=== PATIENT | male | born 1985 | race African-American/Black ===

== ENCOUNTER 2017-01-06 04:10 | Inpatient (IN) | payer OTHER ==
--- NOTE | ~2017-01-06 | HP ---
Unit #: [id number] #: [id number] Patient: JESSICA ROBIN [id number] [address] [place], [place] [address] [id number] MR#: [id number] NAME: JESSICA ROBIN ROOM: 560 Age: 31 Sex: M Admission Date: 01/06/2017 : 1985 Attending Physician: Suyapa Hu M.D. Primary Care Physician: No Primary Care Physician HISTORY AND PHYSICAL CHIEF COMPLAINT Alcohol abuse with withdrawal. HISTORY This pleasant 31-year-old male with traumatic brain injury, GERD, alcohol abuse, was transferred from the [facility] emergency department for alcohol withdrawal. The patient had been clean and sober for nine months until two weeks ago. Over the past two weeks has been binge drinking alcohol. His girlfriend states he drinks at least 1.75 L on a daily basis, last drink was last evening. Last evening he went the [facility] as he wanted to stop drinking, had multiple episodes of nausea and vomiting. He was tachycardic and tremulous. He ultimately was treated with a liter of saline, given Zofran, and 2 mg of Ativan. Currently is feeling improved. His alcohol level at the time of presentation was 478. He has been seen at the [facility] many times and has undergone rehab at their facility as well. Apparently the [facility] ER does not hold patient's, and there were no available rooms at the hospital. Therefore, he was transferred to this facility for his alcohol withdrawal. Again the patient does have a history of alcohol abuse, and states that in the past he did have alcohol withdrawal seizures along wit delirium tremens. PAST MEDICAL HISTORY 1. Chronic back pain. 2. Alcohol abuse with DTs and withdrawal seizures in the past. 3. GERD. 4. Traumatic brain injury and PTSD. 5. Reconstructive facial surgery. ALLERGIES None. HOME MEDICATIONS Claritin 10 mg daily; Flonase nasal spray; multivitamin daily; omeprazole. FAMILY HISTORY Questionable for alcohol. SOCIAL HISTORY The patient is living with his girlfriend. He is a lifelong nonsmoker and does not use drugs. Does have a history of alcohol binge drinking. Unit #: [id number] #: [id number] Patient: ROBIN,JESSICA REVIEW OF SYSTEMS Notable for shakiness, nausea, vomiting, headache currently, back pain, alcohol abuse, GERD, TBI, PTSD, facial reconstructive surgery. All other systems were reviewed and are negative. PHYSICAL EXAMINATION GENERAL: Very pleasant, 31-year-old, somewhat tremulous male currently in no acute distress otherwise. VITAL SIGNS: Prior to transfer, blood pressure 124/52, O2 saturation was 94 to 95% on room air. Patient was afebrile. Heart rate 105 to 115. HEENT: Eyes - PERRLA, extraocular muscles are intact. Some horizontal nystagmus noted. Pharynx is benign. NECK: Supple without adenopathy or thyromegaly. CHEST: Clear. CARDIAC: Slightly tachy S1 and S2 without murmur. ABDOMEN: Bowel sounds are present. Mild hepatomegaly, nontender, no masses. EXTREMITIES: Without clubbing, cyanosis or edema. Pedal pulses are present. NEUROLOGIC: Patient is awake, alert, and oriented. His cranial nerves revealed some horizontal nystagmus. He is mildly tremulous. He has equal strength throughout. DIAGNOSTIC STUDIES LABS PRIOR TO TRANSFER: Hematocrit 41, normal white count and MCV, platelet count 106. SMA 12 - glucose 111, chloride 88, calcium 7.9 with a normal albumin. ALT is 75, AST 99, bilirubin 1.7, alcohol level 478. ASSESSMENT 1. Alcohol binge with alcohol withdrawal. 2. Alcohol induced transaminitis and a history of hepatic steatosis per old records. 3. Thrombocytopenia secondary to alcohol abuse. 4. Traumatic brain injury following head injury and history of PTSD. 5. Environmental allergies. 6. GERD. 7. Chronic low back pain. PLANS 1. IV fluids and supportive treatment. 2. Given that patient concerns large amounts of vodka, will place on Librium routinely along with p.r.n. Ativan and give vitamins. 3. Patient is interested in rehab at the [facility] at the time of discharge, where he has been seen before. Dictated by Suyapa Hu M.D. JASON/ts TD: 01/06/2017 05:42 JOB #: [id number] Unit #: [id number] #: [id number] Patient: JESSICA ROBIN HISTORY AND PHYSICAL X Suyapa Hu MD HISTORY AND PHYSICAL
[2017-01-06 07:41] LABS: HEMATOCRIT 41.2 % (38.0-50.0); HEMOGLOBIN 13.6 gm/dL (13.0-16.0); MEAN CELL VOLUME 86.7 FL (83-96); MEAN CORPUSCULAR HEMOGLOBIN 28.7 PG (28-34); MEAN CORPUSCULAR HGB CONC 33.2 g/dL (30-36); MEAN PLATELET VOLUME 9.2 FL (6.5-11.5); RED BLOOD COUNT 4.75 X10e (3.90-5.60); RED CELL DISTRIBUTION WIDTH 14.1 % (11.0-15.5)
[2017-01-06 07:50] LABS: PARTIAL THROMBOPLASTIN TIME 23.6 SECONDS (23.5-31.3); PROTHROMBIN TIME (PATIENT) 10.3 SECONDS (9.6-11.5)
[2017-01-06 08:22] LABS: ALKALINE PHOSPHATASE 42 U/L (32-92); ALT (SGPT) 54 U/L (10-40); AST (SGOT) 77 U/L (10-42); BILIRUBIN,TOTAL 1.3 mg/dL (0.2-2.0); BLOOD UREA NITROGEN 14 mg/dL (9-23); BUN/CREATININE RATIO 23.33; CALCIUM SERUM 7.8 mg/dL (8.4-10.2); CARBON DIOXIDE 25 mmol/L (22-31); CHLORIDE 91 mmol/L (100-111); CREATININE SERUM 0.6 mg/dL (0.6-1.4); GLOM FILT RATE Estimated ABOVE60 mL/min (>60); GLUCOSE FASTING 105 mg/dL (70-110); POTASSIUM 3.8 mmol/L (3.5-5.1); PROTEIN TOTAL SERUM 7.3 g/dL (6.0-8.3); SODIUM 133 mmol/L (135-145)
== END 2017-01-07 11:36 | disposition home or self-care (01) | DRG 897 ==
LOC: C5B 04:10
PROVIDERS: Internal Medicine
DX: F10.239 Alcohol dependence with withdrawal, unspecified (principal); D69.59 Other secondary thrombocytopenia; Z87.820 Personal history of traumatic brain injury; K21.9 Gastro-esophageal reflux disease without esophagitis; K44.9 Diaphragmatic hernia without obstruction or gangrene; M54.9 Dorsalgia, unspecified
CPT/HCPCS: 80053; 85027; 85610; 85730; J2405; J3411

== ENCOUNTER 2017-04-18 18:56 | Inpatient (IN) | payer OTHER ==
--- NOTE | ~2017-04-18 | DS ---
Unit #: [id number] #: [id number] Patient: JESSICA ROBIN [id number] [facility]. [place], [place] [address] [id number] I MR#: [id number] NAME: JESSICA ROBIN ROOM: 310 Age: 32 Sex: M Admission Date: 04/19/2017 : 1985 Discharge Date: 04/19/2017 Attending Physician: Kay Brenner M.D. Primary Care Physician: No Primary Care Physician DISCHARGE SUMMARY Please note - patient left against medical advice. Please see H and P for complete details. After I saw and evaluated patient in the emergency room, he was subsequently transferred to telemetry floor. Upon reaching the telemetry floor, he refused all laboratory studies. He refused vital signs. He became very belligerent. He stated that he needed Ativan 4-6 mg IV q. hour. If we were unable to provide his Ativan at that dosage, he requested an Ativan drip. He did not qualify for either. His CIWA score was 3, only based on elevated blood pressure and mildly elevated heart rate. He exhibited no withdrawal signs or symptoms here. There was a question if he had any seizure-like activity. However, he stated that he was having active seizures but he was having a full conversation with me at the same time. When I left the room and came back at a later point in time, the patient stopped moving. However, when I began talking to him once again, he began shaking and stating that he was having seizures. While he was evaluated on the telemetry floor and after not being able to receive his Ativan drip and/or IV, subsequently, he stated that he wanted to leave. It should be noted that he did, from the ER moving to telemetry floor, decide to walk out and walk down and outside the hospital with several friends with his IV in place. Upon returning to the floor, we requested a urine tox screen to which he refused. At that point in time, and because he was becoming belligerent, we had security involved. His IV was removed and the patient walked out against medical advice. He was alert and oriented x3 at time of discharge. His discharge medications are unknown as he did leave against medical advice. FINAL DISCHARGE DIAGNOSES 1. Alcohol abuse. 2. Likely polysubstance abuse. 3. Questionable history of withdrawal seizures in the past. DISCHARGE MEDICATIONS Unknown. DISCHARGE DISPOSITION Unknown. Patient left AMA. Unit #: [id number] #: [id number] Patient: JESSICA ROBIN Dictated by... Kian Hoover/cholo TD: 04/20/2017 11:18 JOB #: [id number] DISCHARGE SUMMARY Page 1 of 1 X Kay Brenner MD X DISCHARGE SUMMARY
--- NOTE | ~2017-04-18 | HP ---
Unit #: [id number] #: [id number] Patient: JESSICA ROBIN [id number] [address] [place], [place] [address] [id number] I MR#: [id number] NAME: JESSICA ROBIN ROOM: 15745 Age: 32 Sex: M Admission Date: 04/19/2017 : 1985 Attending Physician: Suyapa Hu M.D. Primary Care Physician: No Primary Care Physician HISTORY AND PHYSICAL CHIEF COMPLAINT Alcohol withdrawal seizure, and early alcohol withdrawal despite alcohol intoxication. HISTORY This 32-year-old male with traumatic brain injury, GERD, ETOH abuse, is admitted for alcohol withdrawal and alcohol withdrawal seizure. The patient binge drinks, has been on a binge for the past week drinking one half gallon of vodka daily. Last drink was yesterday afternoon. However, yesterday morning he awoke with a seizure. Last evening he became tremulous and presented to this emergency department where he was tachycardic and hypertensive. He was given Librium, IV fluids, rally pack, Ativan and Protonix. He still feels somewhat tremulous with tachycardia. He is in therapy as an outpatient for his alcohol abuse. Alcohol level upon presentation to the ER was 393. PAST MEDICAL HISTORY 1. Chronic back pain. 2. Alcohol abuse with alcohol withdrawal seizures in the past and DTs. 3. GERD. 4. Traumatic brain injury and PTSD. 5. Reconstructive facial surgery. ALLERGIES None. HOME MEDICATIONS 1. Omeprazole 20 mg daily. 2. Multivitamin. 3. Flonase nasal spray. 4. Claritin 10 mg daily. FAMILY HISTORY Alcohol abuse. SOCIAL HISTORY The patient lives in an apartment and his girlfriend lives in the same apartment building. He is a lifelong nonsmoker, does not use illicit drugs. Binge drinks alcohol, has been drinking a half gallon of vodka on a daily basis over the past week. REVIEW OF SYSTEMS Notable for palpitations, shakiness, seizure yesterday morning, chronic Unit #: [id number] #: [id number] Patient: JESSICA ROBIN back pain, alcohol abuse with seizures and DTs related to such, GERD, traumatic brain injury, PTSD, above mentioned surgeries. All other systems were reviewed and are otherwise negative. PHYSICAL EXAMINATION GENERAL APPEARANCE: Pleasant, mildly tremulous 32-year-old male who otherwise is in no acute distress. VITAL SIGNS: Temperature has not yet been obtained. Pulse was 115, now is 145. Respirations 19, blood pressure 148/94. O2 saturation is 96% on 2 L of oxygen. HEENT: Eyes PERRLA. Extraocular muscles are intact. Pharynx is benign. NECK: Supple without adenopathy or thyromegaly. CHEST: Clear. CARDIAC: Tachy S1 and S2 without murmur. ABDOMEN: Bowel sounds are present. No hepatosplenomegaly, tenderness or masses. EXTREMITIES: Without clubbing, cyanosis or edema. Pedal pulses are present. NEUROLOGIC: The patient is awake, alert, oriented. His cranial nerves are intact except for mildly stuttered speech. He is mildly tremulous on exam. He has equal strength throughout. DIAGNOSTIC STUDIES LABORATORY: Admission labs - hematocrit is 46.1. Normal white count and platelet count. SMA-12 - chloride is 97, protein 8.7, AST 75, ALT 55, normal lipase. CPK is 1600. Alcohol level is 393. Cardiac markers negative. ASSESSMENT 1. Alcohol withdrawal seizure yesterday morning. Patient now presents with early alcohol withdrawal despite being somewhat intoxicated. 2. Sinus tachycardia related to above. 3. Binge drinking, patient drinks one half gallon of vodka on a daily basis. 4. Gastroesophageal reflux disease. 5. Traumatic brain injury and post traumatic stress disorder. PLANS 1. IV fluids. 2. Benzos and vitamins. 3. Low dose Lopressor, check EKG, TSH, magnesium. 4. Check urine tox screen. 5. The patient plans to follow up with therapist as an outpatient. 6. Will check temperature. Dictated by Kian Bryant/cholo TD: 04/19/2017 05:01 JOB #: [id number] Unit #: [id number] #: [id number] Patient: JESSICA ROBIN HISTORY AND PHYSICAL Page 1 of 1 X Suyapa Hu MD HISTORY AND PHYSICAL
--- NOTE | ~2017-04-18 | EKG ---
PATIENT: JESSICA ROBIN UNIT #: [id number] Ventricular Rate: 103 BPM Atrial Rate: 312 BPM QRS Duration: 90 ms Q-T Interval: 276 ms QTC Calculation(Bezet): 361 ms P [place]: 42 degrees Calculated R [place]: 44 degrees Calculated T [place]: 10 degrees Diagnosis Line: Sinus tachycardia Diagnosis Line: Nonspecific T wave abnormality Diagnosis Line: Abnormal ECG Diagnosis Line: When compared with ECG of 19-APR-2017 02:34, Diagnosis Line: (unconfirmed) Diagnosis Line: Vent. rate has increased BY 53 BPM Diagnosis Line: Nonspecific T wave abnormality now evident in Diagnosis Line: Inferior leads Diagnosis Line: Nonspecific T wave abnormality, worse in Lateral Diagnosis Line: leads Diagnosis Line: Confirmed by TERE CARRILLO MD ([id number]) on Diagnosis Line: 04/19/2017 10:38:12 PM INTERPRETING MD: SASCHA
[2017-04-18 20:56] LABS: BASOPHIL% 0.5 % (0-2.5); EOSINOPHIL% 0.3 % (0.0-7.0); HEMATOCRIT 46.5 % (38.0-50.0); HEMOGLOBIN 15.3 gm/dL (13.0-16.0); LYMPHOCYTE# 3.5 X10e3 (1.0-3.5); LYMPHOCYTE% 49.4 % (17.0-45.0); MEAN CELL VOLUME 87.3 FL (83-96); MEAN CORPUSCULAR HEMOGLOBIN 28.8 PG (28-34); MEAN PLATELET VOLUME 8.7 FL (6.5-11.5); MONOCYTE# 0.3 X10e3 (0-1.0); MONOCYTE% 4.9 % (3.0-12.0); NEUTROPHIL# 3.2 X10e3 (1.5-7.1); NEUTROPHIL% 44.9 % (40-75); PLATELET COUNT 230 X10e3 (140-420); RED BLOOD COUNT 5.32 X10e (3.90-5.60); RED CELL DISTRIBUTION WIDTH 14.2 % (11.0-15.5); WHITE BLOOD COUNT 7.1 X10e3 (4.0-10.5)
[2017-04-18 20:58] LABS: DIFF IND NO
[2017-04-18 21:04] LABS: POC - CKMB 10.4 ng/mL (0.0-7.9); POC - TROPONIN <0.05 ng/mL (<=0.05)
[2017-04-18 21:23] LABS: ALBUMIN SERUM 4.6 g/dL (3.5-5.0); BILIRUBIN, DIRECT 0.2 mg/dL (0.0-0.2); BILIRUBIN,TOTAL 1.2 mg/dL (0.2-2.0); BUN/CREATININE RATIO 18.57; CALCIUM SERUM 8.4 mg/dL (8.4-10.2); CREATININE SERUM 0.7 mg/dL (0.6-1.4); GLOM FILT RATE Estimated 144.8 mL/min (>60); POTASSIUM 3.8 mmol/L (3.5-5.1); PROTEIN TOTAL SERUM 8.7 g/dL (6.0-8.3)
[2017-04-19 11:46] LABS: THYROID STIMULATING HORMONE 1.86 uIU/ml (0.34-5.60)
[2017-04-19 11:53] LABS: FREE THYROXIN (T4) 0.58 ng/dL (0.58-1.64)
== END 2017-04-19 12:02 | disposition left against medical advice (07) | DRG 894 ==
LOC: CED 18:56 → C3A PCU 04-19 00:44 → CEDOF 04-19 00:44 → CED 04-19 00:44 → CEDOF 04-19 00:45 → C3A PCU 04-19 07:59
PROVIDERS: Emergency Medicine; Internal Medicine
DX: F10.239 Alcohol dependence with withdrawal, unspecified (principal); G40.509 Epileptic seizures related to external causes, not intractable, without status epilepticus; Z87.820 Personal history of traumatic brain injury; K21.9 Gastro-esophageal reflux disease without esophagitis; F43.10 Post-traumatic stress disorder, unspecified; R00.0 Tachycardia, unspecified; Y90.8 Blood alcohol level of 240 mg/100 ml or more
CPT/HCPCS: 36415; 80048; 80076; 82550; 82553; 82947; 83690; 84439; 84443; 84484; 85025; 87806; 93005; 96360; 99285; C9113; G0480; J2060; J2405; J3411; J3475